=== PATIENT | female | born 1990 | race Two or more races ===

== ENCOUNTER 2020-12-27 12:21 | Outpatient (REF) | payer MEDICAID, SELFPAY ==
--- NOTE | ~2020-12-27 | MM_ITS ---
EXAMINATION: MM DIAGNOSTIC DIGITAL BREAST TOMOSYNTHESIS, BILATERAL US DIAGNOSTIC ULTRASOUND BREAST, BILATERAL CLINICAL INFORMATION: 30-year-old female with bilateral palpable masses upper outer breast, increased by patient perception. Prior history benign right ultrasound-guided core biopsy 06/03/2016 (fibroadenoma). No known family history breast cancer. The lifetime risk of breast cancer based on the Tyrer-Cuzick Model is 14%. COMPARISON: Outside reports from [facility]: Ultrasound guided core biopsy right breast 06/03/2006 and report targeted right breast ultrasound 12:00 area 05/06/2006. TECHNIQUE: Digital breast tomosynthesis is performed in both the craniocaudal and mediolateral oblique views along with computer-aided detection (CAD). Synthesized 2D images are generated from the tomosynthesis. Ultrasound bilateral breasts is performed for all 4 quadrants on each side using grayscale imaging and color Doppler without and with harmonics. FINDINGS: The breasts are heterogeneously dense, which may obscure small masses (ACR BI-RADS breast composition Category c). There are multiple bilateral smooth round, oval, and minor macrolobulated masses. Largest masses on left are upper outer quadrant 4.3 cm and posterior 9:00 left breast measuring 3.2 cm. Largest masses on right are upper outer quadrant measuring 5.0 cm and adjacent mass 2.0 cm. There is no architectural abnormality. No abnormal calcifications. No focal duct ectasia. The axilla and skin contours are unremarkable. Ultrasound left breast demonstrates 3 circumscribed solid masses, all with long axis parallel to the skin, likely fibroadenomas as follows: -1:00, 8 cm from nipple: 4.2 x 1.4 x 4.2 cm. -11:00, 8 cm from nipple: 3.1 x 1.4 x 2.0 cm. -12:00, 5 cm from nipple: 1.8 x 0.7 x 1.4 cm. Ultrasound right breast demonstrates 3 circumscribed solid masses, all with long axis parallel to the skin, likely fibroadenomas as follows: -10:00, 5.0 cm from nipple: 4.8 x 1.6 x 4.8 cm. -11:00, 5 cm from nipple: 2.2 x 1.0 x 2.1 cm. -1:00, 5 cm from nipple: 1.4 x 0.8 x 1.0 cm. -10:00 periareolar: 1.7 x 0.9 x 1.2 cm. -The lesion previously sampled with clip marker is not demonstrated. Results are discussed with the patient at time of visit. The masses are likely all fibroadenomas. The largest lesions are over 4 cm on each side. Surgical consult is recommended. MM/MM tomosynthesis diagnostic BI IMPRESSION: Multiple bilateral solid masses likely fibroadenomas, largest 4.8 cm on right and 4.2 cm on left. ASSESSMENT: BI-RADS 4: Suspicious (subcategory 4A: Low suspicion for malignancy) RECOMMENDATION: Surgical consult.
== END 2020-12-27 12:22 | disposition home or self-care (01) ==
LOC: HO.MAMMO 12:21
PROVIDERS: Visit Provider Registered Nurse Community Health
DX: N63.21 Unspecified lump in the left breast, upper outer quadrant (principal); N63.22 Unspecified lump in the left breast, upper inner quadrant; N63.11 Unspecified lump in the right breast, upper outer quadrant; N63.12 Unspecified lump in the right breast, upper inner quadrant
CPT/HCPCS: 76642; 77062; 77066

== ENCOUNTER → 2021-01-04 15:25 | Outpatient (BNVA) | payer MEDICAID, SELFPAY | PROVIDERS: PCP Registered Nurse Community Health; Referring Provider Registered Nurse Community Health; Visit Provider Surgery | DX: D24.1 Benign neoplasm of right breast (principal); D24.2 Benign neoplasm of left breast | CPT/HCPCS: 99202 ==

== ENCOUNTER 2021-03-19 08:05 | Day surgery (SDC) | payer MEDICAID, SELFPAY ==
[2021-03-13 10:57] VITALS: BMI 22.9
--- NOTE | 2021-03-16 12:01 | HO.ANESPROP2 ---
Documented by User: Liudmila Dodson NP 03/16/21 12:01 HPI - Anesthesia Eval Consult details Narrative: 30yo F for Bilateral Excision of 3 Right breast masses & 2 Left breast masses [facility] Active Problems Active Problems: All Active Problems (Updated 01/18/21 @ 13:09 by Scarlet Miller RN) Fibroadenoma of both breasts (Acute) Past Medical History Medical History Anxiety Asthma Concussion Depression Family History Family History Maternal Grandmother Stomach cancer Maternal Aunt Breast cancer Maternal Aunt Breast cancer Surgical History Surgical History History of breast lump/mass excision Social History Social History Alcohol intake: never Patient Tobacco Use Status: Never used Tobacco Use of substances other than those prescribed or required for medical reasons: Yes Are you DNR?: No Advance Directives: No Advance Directives Information Provided: Yes Recently lost weight without trying: No How much weight loss: 2-13 pounds Nutrition Risks: No Nutritional Risk Meds Allergies Allergy/AdvReac Type Severity Reaction Status Date / Time No Known Allergies Allergy Verified 03/19/21 08:15 Home Medications Medication Instructions Recorded Confirmed Last Taken Type albuterol sulfate 90 mcg/actuation 2 puff INHALATION Q4-6H PRN 01/18/21 03/19/21 Unknown History aerosol inhaler (ProAir HFA) citalopram 20 mg tablet 20 mg PO DAILY 03/19/21 03/19/21 Unknown History Exam Exam Date and Time: March 16, 2021 1201 Height,Weight and Vital Signs: Height 5 ft 8 in Weight 68.492 kg Assessment and Plan Assessment Anesthesia Assessment: Chart Reviewed Documented by User: Suni Gr MD 03/19/21 09:25 PMFSH Past Medical History Medical History Anxiety Asthma Concussion Depression Family History Family History Maternal Grandmother Stomach cancer Maternal Aunt Breast cancer Maternal Aunt Breast cancer Surgical History Surgical History History of breast lump/mass excision History of Problems with Anesthesia: No Social History Social History Alcohol intake: never Patient Tobacco Use Status: Never used Tobacco Use of substances other than those prescribed or required for medical reasons: Yes Are you DNR?: No Advance Directives: No Advance Directives Information Provided: Yes Recently lost weight without trying: No How much weight loss: 2-13 pounds Nutrition Risks: No Nutritional Risk Meds Allergies Allergy/AdvReac Type Severity Reaction Status Date / Time No Known Allergies Allergy Verified 03/19/21 08:15 Home Medications Medication Instructions Recorded Confirmed Last Taken Type albuterol sulfate 90 mcg/actuation 2 puff INHALATION Q4-6H PRN 01/18/21 03/19/21 Unknown History aerosol inhaler (ProAir HFA) citalopram 20 mg tablet 20 mg PO DAILY 03/19/21 03/19/21 Unknown History Exam Airway Mallampati Class: II TM Dist: >3cm Neck ROM: Full Loose/Missing/Broken Teeth: No Heart: RRR Lungs: CTA Assessment and Plan Assessment Anesthesia Assessment: Anesthesia Plan Discussed Final Anesthetic Review History of Problems with Anesthesia: No NPO: Yes ASA Class: II Final Preanesthetic Review: Meds/Allgs Chart Reviewed, Consent Obtained/Reviewed and Anes Risks/Benef Reviewed Patient Risk: Low Procedure Risk: Low
[2021-03-19] VITALS (8 sets, daily range): BP systolic 110–135; BP diastolic 53–76; PULSE 83–104; RESP 16–20; TEMP 36.7–37.3; O2SAT 97–100; BMI 23.6
[2021-03-19 08:28] LABS: UPreg QC Valid YES; Urine Pregnancy NEGATIVE (NEGATIVE)
[2021-03-19] MEDS: Lactated Ringers 1,000 ML 100 ML IVCONT (08:42)
--- NOTE | 2021-03-19 09:07 | MHC.SHP ---
Pre-Procedural Eval Section A Date of Service: 03/19/21 The patient is an INPATIENT: No Changes since office visit: Yes Patient answered all questions; No Cold of Flu in the past 2 weeks, No New Medical Problems and No Changes in Medication The History & Physical has been completed within 30 days and I have reviewed it.: No Section B Chief Complaint: Fibroadenoma of both breasts Relevant Family History (Specify if Yes): No Relevant Social History: None Present Medications: None Medical History: No relevant PMH History of Previous Operations: No relevant previous surgery Allergies: Allergies Allergy/AdvReac Type Severity Reaction Status Date / Time No Known Allergies Allergy Verified 03/19/21 08:15 Review of Systems Sugical H&P ROS: Negative: Constitution, Cardiovascular, Respiratory, Neurological, Psychiatric, Hem-Onc, Allergic/Immunologic, Gastrointestinal, Genitourinary, Musculoskeletal, Endocrine and Eyes/Ears/Nose/Throat and Yes, Specify: Integumentary (breast mass) Exam Surgical H&P Exam: Normal: HEENT, Normal: Heart, Normal: Lungs, Normal: Extremities, Normal: Abdomen, Normal: Skin and Normal: Neurological Plan Diagnosis/Plan: Unchanged I have reviewed the history and physical and performed a pertinent physical examination on my patient. No changes have occurred unless specified.
--- NOTE | 2021-03-19 11:14 | P.OP_ITS ---
Operative Note Operative Note Date of Service: 03/19/21 Narrative: Preoperative diagnosis: Bilateral breast fibroadenomas Postoperative diagnosis: same Procedure: excision of fibroadenoma x3 right, x2 left Surgeon: Rayo Orozco MD [employer] Detail: Angeline Beasley PA-C Anesthesia: general LMA Indications for procedure: 30-year-old female with a previous history of bilateral fibroadenomas previous core biopsies confirming the diagnosis. Patient has requested excision of all 5 lesions as noted above. Operative findings: Multiple fibroadenomas including 3 on the right and 2 on the left the largest measuring approximately 4 cm in diameter. Specimen: Fibroadenoma x2 left breast, x3 right breast Estimated blood loss: 10 mL Complications: none Procedure details: patient was brought to the OR placed in a supine position. After administering general anesthesia the patient's breasts were prepped with ChloraPrep and draped in a sterile fashion. A surgical time-out was called the consent confirmed. Patient received preoperative antibiotics and Venodyne boots were placed. Local anesthesia consisting of 0.5% Sensorcaine was infiltrated in a curvilinear fashion in the upper portion of the left nipple. Curvilinear incision was then made with a scalpel carried out through subcutaneous tissue. Superior and inferior skin flaps were then created. Dissection was continued superiorly and a 02:00 o'clock location along the surface of the breast tissue. The palpable fibroadenoma was grasped with an Allis clamp electrocautery used to dissect around the lesion. Lesion was completely excised and sent to pathology. Attention was then directed to the 10 to 11 o'clock position where a 2nd lesion was noted. This was dissected over the superior surface and grasped with an Allis clamp. This was then brought up through the incision and dissected circumferentially using electrocautery. The lesion was passed off the table and sent to pathology for further examination. Attention was then directed to the right breast where again local anesthesia was infiltrated in the top portion of the nipple areolar complex. A curvilinear incision was made at the edge of the areola carried out through subcutaneous tissue. Superior and inferior skin flaps were then created. Dissection was continued superiorly and the 10 o'clock position. A large fibroadenoma was identified at this location. This was grasped with an Allis clamp. Electrocautery was then used to dissect circumferentially around the lesion. Lesion was excised and sent to pathology. Two other lesions, one located in the 12 o'clock position a 2nd in the 11 o'clock position were also excised in a similar fashion using electrocautery. All 3 lesions were sent to pathology for further examination. After assuring adequate hemostasis at both incisions the incisions were irrigated with saline solution. The deep breast tissue was then reapproximated using interrupted 3-0 Polysorb sutures. Dermis was reapproximated using interrupted 3-0 Polysorb sutures. Skin was then closed using a running subcuticular 4-0 Polysorb suture in both incisions. Steri-Strips 2 x 2 gauze and Tegaderm were then applied. The patient tolerated the procedure well. Sponge, instrument, and needle counts reported as correct. She was transferred to PACU in stable condition.
[2021-03-19] MEDS: ondansetron HCL 4 MG/2 ML VIAL IVPUSH (11:54)
[2021-03-19] MEDS: Acetaminophen 325 MG TABLET 650 MG PO (12:06)
== END 2021-03-19 13:20 | disposition home or self-care (01) ==
PROVIDERS: Nurse Practitioner; PCP Registered Nurse Community Health; Visit Provider Surgery
PROC: (CPT 19120; principal; 2021-03-19 09:40)
DX: D24.2 Benign neoplasm of left breast (principal); D24.1 Benign neoplasm of right breast; Z86.018 Personal history of other benign neoplasm
CPT/HCPCS: 19120; 81025; 88305; 88307; J0690; J1100; J2250; J2405; J3010

== ENCOUNTER → 2021-04-05 14:21 | Outpatient (BNVA) | payer MEDICAID, SELFPAY | PROVIDERS: PCP Registered Nurse Community Health; Referring Provider Registered Nurse Community Health; Visit Provider Surgery | DX: D24.1 Benign neoplasm of right breast (principal); D24.2 Benign neoplasm of left breast | CPT/HCPCS: 99212 ==

== ENCOUNTER 2021-10-14 12:37 | Emergency (ER) | payer MEDICAID, SELFPAY ==
[2021-10-14 12:53] VITALS: BP 117/66; PULSE 90; RESP 17; TEMP 36.2; O2SAT 99; BMI 22.5
[2021-10-14] MEDS: Diphth,Pertus(ACell),Tet Adult 0.5 ML SYRINGE IM (14:11)
--- NOTE | 2021-10-14 14:44 | ED_ITS ---
HPI - Wound/Laceration General Chief Complaint: Wound/Laceration Stated Complaint: l arm laceration Time Seen by Provider: 10/14/21 13:40 Source: patient Mode of arrival: ambulatory History of Present Illness HPI narrative: 31-year-old female with a past medical history of anxiety, asthma, depression, presenting to the ED complaining of laceration to left forearm s/p cooking with knife this morning and fall slipping and falling onto knife. Denies injury to other area. Tetanus unknown. Denies numbness, tingling, weakness Onset (ago): hour(s) Related Data Home Medications Medication Instructions Recorded Confirmed albuterol sulfate 90 mcg/actuation 2 puff inhalation Q4-6H PRN 01/18/21 04/06/21 aerosol inhaler (ProAir HFA) Wheezing citalopram 20 mg tablet 20 mg PO DAILY 03/19/21 04/06/21 Previous Rx's Medication Instructions Recorded oxycodone-acetaminophen 5 mg-325 1 tab PO Q6H PRN pain (scale score 03/19/21 mg tablet (Endocet) 7-10) #14 tabs Allergies Allergy/AdvReac Type Severity Reaction Status Date / Time No Known Allergies Allergy Verified 10/14/21 12:53 Review of Systems Review of Systems: Constitutional: No Weight loss, No Fever, No Chills ENT/Mouth: No Ear Pain, No Nasal Congestion, No Hoarseness, No sore throat, No Rhinorrhea, No Swallowing Difficulty Cardiovascular: No Chest Pain, No SOB Respiratory: No Cough, No Sputum Gastrointestinal: No Nausea, No Vomiting, No Diarrhea, No Constipation, No Abdominal pain Genitourinary: No Dysuria, No Urinary Frequency, No Hematuria, No Urinary Incontinence/retention, No Urgency, No Flank Pain Musculoskeletal: No joint pain, No Myalgias, No Joint Swelling Skin: + Skin Lesions, No rash Neuro: No Weakness, No Numbness, No Paresthesias Yes all other systems are reviewed and are negative [facility] Past Medical History Attestation statement: The following information was validated with the patient. Medical History Anxiety Asthma Concussion Depression Surgical History History of breast lump/mass excision Family History Family History Maternal Grandmother Stomach cancer Maternal Aunt Breast cancer Maternal Aunt Breast cancer Social History Social History Alcohol intake: never Patient Tobacco Use Status: Never used Tobacco Advance Directives: No Advance Directives Information Provided: No Physical Exam Vital Signs: Vital Signs: Last Vital Signs Temp 97.2 F 10/14/21 12:53 Pulse 90 10/14/21 12:53 Resp 17 10/14/21 12:53 BP 117/66 10/14/21 12:53 Pulse Ox 99 10/14/21 12:53 O2 Del Method 10/14/21 12:53 BMI result Body Mass Index 22.5 Const: General: cooperative, healthy appearing and no acute distress Orientation/consciousness: patient oriented x3 Limitations: no limitations HEENT: Head: Yes normal to inspection and Yes atraumatic Ears: hearing grossly normal bilaterally General nose exam: Normal external nose present Face and sinus: Yes normal facial exam Eyes: General: appearance normal, both eyes and all related structures EOM: EOMs intact bilaterally Neck: Neck: Yes normal visual inspection and Yes no meningeal signs Resp: Effort & Inspection: normal respiratory effort and no respiratory distress Cardio: Rate: regular rate Heart sounds: S1 normal heart sound present and S2 normal heart sound present Skin: Other: +1.5cm superficial laceration to L forearm. No surrounding erythema, no warmth Rashes: no rashes Neuro: General: patient oriented x3, tone normal and no meningeal signs Gait exam (Neuro): Normal gait present Extrem: General: Yes normal to inspection MDM - Wound/Laceration MDM Narrative Medical decision making narrative: 31-year-old female with a past medical history of anxiety, asthma, depression, presenting to the ED complaining of laceration to left forearm s/p cooking with knife this morning and fall slipping and falling onto knife. On exam vital signs stable, NAD/nontoxic appearing, physical exam as above. Superficial laceration noted, will Dermabond and update tetanus Differential Diagnosis Differential diagnosis: Likely laceration Medical Records Attestation: I reviewed the patient's medical records. Lab Data Attestation: I reviewed the patient's lab results. Procedures Laceration Laceration 1: Site: upper extremity Side (If applicable): left Size (cm): 1.5 Description: linear Depth: simple, single layer Pre-repair: wound explored and irrigated extensively Skin layer closed with: other (Dermabond) Discharge Plan Discharge Clinical Impression: Laceration Patient Disposition: Home, Self-Care Instructions: Laceration (ED) Additional Instructions: Your cut was fixed with skin glue, do not pick a it, this will fall off on its own. If area begins look infected please return to the emergency department. Your tetanus was updated. Prescriptions: No Action albuterol sulfate [ProAir HFA] 90 mcg/actuation Hfa Aerosol Inhaler 2 puff INHALATION Q4-6H PRN (Reason: Wheezing) citalopram 20 mg Tablet 20 mg PO DAILY oxycodone-acetaminophen [Endocet] 5-325 mg tablet 1 tab PO Q6H PRN (Reason: pain (scale score 7-10)) Qty: 14 0RF Referrals: Rebeka Barrett MANAGING DIRECTOR [employer]LAS [Primary Care Provider] - Interventions: ED Discharge Assessment Last Done: 10/14/21 15:03
== END 2021-10-14 15:05 | disposition home or self-care (01) ==
PROVIDERS: Emergency Provider Emergency Medicine Emergency Medical Services; PCP Registered Nurse Community Health
DX: S41.112A Laceration without foreign body of left upper arm, initial encounter (principal); W26.0XXA Contact with knife, initial encounter; Y93.9 Activity, unspecified; Y92.009 Unspecified place in unspecified non-institutional (private) residence as the place of occurrence of the external cause; Y99.9 Unspecified external cause status; Z79.899 Other long term (current) drug therapy
CPT/HCPCS: 12001; 90471; 90715; 99283; 99284

== ENCOUNTER 2025-04-27 10:41 | Outpatient (REF) | payer MEDICAID, SELFPAY ==
--- NOTE | ~2025-04-27 | XR_ITS ---
EXAMINATION: XR HAND 3 OR MORE VIEWS RIGHT HISTORY: pain COMPARISON: There are no prior studies available for comparison. FINDINGS: Three views of the right hand are submitted. Osseous mineralization is normal. There is no fracture or dislocation. The joint spaces are preserved. The soft tissues are unremarkable. XR/XR hand RT min 3V IMPRESSION: Unremarkable examination of the right hand. Electronically signed by: Kristofer Grimes MD 04/27/2025 11:11 AM ZOË
--- OUTSIDE RECORDS SUMMARY | 2025-04-27 10:20 | XMS_ITS | Encounter Summary ---
Author Organization [employer] Address [address] [place] [address] Care Team Providers Care Drapery Operator Name Role Phone Unavailable Primary Care Provider Unavailabl e Reason for Visit * Reason Comments Hand Pain Encounter Details Date Type Department Care Team ([facility] st Contact Info) Description 04/27/2025 10:20 AM EST Office Visit [facility] [address] [place] [address] Cecilia Weathers MD [address] [place] [address] Right hand pain (Primary Dx); Closed fracture of right hand, initial encounter Social History Tobacco Use Types Packs/Day Years Used Date Smoking Tobacco: Never Smokeless Tobacco: Never Tobacco Cessation:Counseling Given: Not Answered Alcohol Use Standard Drinks/Week Comments Yes 0 (1 standard drink = 0.6 oz pur e alcohol) Alcohol Answer Date Recorded How often do you have a drink containing alcohol ? 0 03/04/2025 How many drinks containing a lcohol do you have on a typical day when you are drinking? 0 03/04/2025 How often do you have six or more drinks on one occasion? 0 03/04/2025 Housing Stability Answer Date Recorded What is your housing situation today? I have erika mercer 01/03/[address] you li ve. Do you have problems with any of the following? None of the above 01/03/2025 Food Insecurity Answer Date Recorded Within the past 12 months, y ou worried that your food would run out before you got money to buy more: Never True 01/03/2025 Within the past 12 months,th e food you bought just didn't last and you didn't have enough money to get more: Never True 11/2024 Transportation Answer Date Recorded In the past 12 months, has l ack of transportation kept you from medical appts, meetings, work or from getting things needed for daily living? No 01/03/2025 Intimate Partner Violence Answer Date R ecorded Within the last year, have y ou been afraid of your partner or ex-partner? 2 03/04/2025 Within the last year, have y ou been humiliated or emotionally abused in other ways by your partner or ex-partner? 2 Within the last year, have y ou been kicked, hit, slapped, or otherwise physically hurt by your partner or ex-partner? 2 03/04/2025 Within the last year, have y ou been raped or forced to have any kind of sexual activity by your partner or ex-partner? 2 03/04/2025 Utilities Answer Date Recorded In the past 12 months, has t he electric, gas, oil or water company threatened to shut off services in your home? No 01/03/2025 Internet Access Answer Date Recorded Internet Access Q1 Yes 01/03/2025 Internet Access Q2 Not on file 01/03/2025 Comments No Sex and Gender Information Value Date Recorded Sex Assigned at Female 02/22/2022 5:45 PM EDT Legal Sex Female 5:45 PM EDT Gender Identity Female 02/22/2022 5:45 PM EDT Sexual Orientation Straight 02/22/2022 5: 45 PM EDT documented as of this encounter Last Filed Vital Signs Vital Sign Reading Time Taken Comments Blood Pressure 123/79 04/27/2025 10:17 AM EST Pulse 96 04/27/2025 10:17 AM EST Temperature 37 C (98.6 F) 04/27/2025 10:17 AM EST Respiratory Rate 19 04/27/2025 10:1 7 AM EST Oxygen Saturation 99% 04/27/2025 10: 17 AM EST Inhaled Oxygen Concentration - - Weight 81.1 kg (178 lb 12.8 oz) 025 10:17 AM EST Height 174 cm (5' 8.5 ) 04/27/2025 10:1 7 AM EST Body Mass Index 26.79 04/27/2025 10:17 AM EST documented in this encounter Plan of Treatment Upcoming Encounters Date Type Department Care Team (Late st Contact Info) Description 06/10/2025 9:00 AM EST Office Visit [facility] [address] [place] [address] Steffi Salgado NP [address] [place] [address] 07/11/2025 10:30 AM EDT Office Visit [facility]/Family Planning [address] [place] [address] Amarilis Roberto NP [address] [place] [address] documented as of this encounter Procedures Procedure Name Priority Date/Time Associated Diagnosis Comments XR HAND 3+ VIEWS RIGHT Routine 04/27/2025 10:50 AM EST Right hand pain documented in this encounter Results * XR Hand 3+ Views Right (04/27/2025 10:50 AM EST) Anatomical Region Laterality Modality Upper Extremities, Hand Right [facility] 04/27/2025 10:5 0 AM EST Narrative 04/27/2025 11:14 AM EST [address] [address] XRay Report Signed Patient: Sara Barnett MR#: [id number] : 1990 Acct:[id number] Age/Sex: 35 / F ADM Date: 04/27/25 Loc: .HHCX Attending Dr: Cecilia Weathers MD Ordering Physician: Cecilia Weathers MD Date of Service: 04/27/25 Procedure(s): XR hand RT min 3V Accession Number(s): [id number] cc: Cecilia Weathers MD Reason for Exam: pain EXAMINATION: XR HAND 3 OR MORE VIEWS RIGHT HISTORY: pain COMPARISON: There are no prior studies available for comparison. FINDINGS: Three views of the right hand are submitted. Osseous mineralization is normal. There is no fracture or dislocation. The joint spaces are preserved. The soft tissues are unremarkable. XR/XR hand RT min 3V IMPRESSION: Unremarkable examination of the right hand. Electronically signed by: Kristofer Grimes MD 04/27/2025 11:11 AM EST RP Dictated By: Kristofer Grimes MD Signed By: <Electronically signed by Kristofer Grimes MD in OV> 04/27/25 1111 DD/ 1050 TD/TT: 04/27/25 105 Sales Service Rep: Procedure Note Donotuseinterpreter, Image - 04/27/[address] [address] XRay Report Signed Patient: Sara BarnettMR#: [id number] : 1990Acct:[id number] Age/Sex: 35 / FADM Date: 04/27/25 Loc: HO.HHCX Attending Dr: Cecilia Weathers MD Ordering Physician: Ceiclia Weathers MD Date of Service: 04/27/25 Procedure(s): XR hand RT min 3V Accession Number(s): [id number] cc: Cecilia Weathers MD Reason for Exam: pain EXAMINATION: XR HAND 3 OR MORE VIEWS RIGHT HISTORY: pain COMPARISON: There are no prior studies available for comparison. FINDINGS: Three views of the right hand are submitted. Osseous mineralization is normal. There is no fracture or dislocation. The joint spaces are preserved. The soft tissues are unremarkable. XR/XR hand RT min 3V IMPRESSION: Unremarkable examination of the right hand. Electronically signed by: Kristofer Grimes MD 04/27/2025 11:11 AM EST RP Dictated By: Kristofer Grimes MD Signed By: <Electronically signed by Kristofer Grimes MD in OV> 04/27/25 1111 DD/ 1050 TD/TT: 04/27/25 105 Sales Service Rep: Cecilia Weathers MD IMG XR PROCEDURES Final Result documented in this encounter Visit Diagnoses Diagnosis Right hand pain- Primary Pain in soft tissues of limb Closed fracture of right hand, initial encounter documented in this encounter
--- OUTSIDE RECORDS SUMMARY | 2025-04-27 11:58 | XMS_ITS | Encounter Summary ---
Author Organization [employer] Address [address] [place] [address] [address] [address] Care Team Providers Care Online Advertising Director Name Role Phone Unavailable Primary Care Provider Unavailabl e Reason for Visit * Reason Onset Date Comments Appointment Request 12/21/2024 Nexplanon re moval Encounter Details Date Type Department Care Team ([facility] st Contact Info) Description 12/21/2024 Telephone OB/Family Planning [address] [place] [address] Provider, Not In System Appointment Request (Nexplanon removal) Social History Tobacco Use Types Packs/Day Years Used Date Smoking Tobacco: Never Assessed Comments Unknown Sex and Gender Information Value Date Recorded Sex Assigned at Female 02/22/2022 5:45 PM EDT Legal Sex Female 5:45 PM EDT Gender Identity Female 02/22/2022 5:45 PM EDT Sexual Orientation Straight 02/22/2022 5: 45 PM EDT documented as of this encounter Miscellaneous Notes * Telephone Encounter - Emily Miller - 12/29/2024 11:41 AM EDT Patient request to r/s the appointment on 01/03 to 8:50am * Telephone Encounter - Sandeep Reid - 12/29/2024 11:04 AM EDT Pt is requesting to speak with the OB office regarding her nexplanon removal. * Telephone Encounter - Phyllis Frye RN - 12/21/2024 10:13 AM EDT FP counseling Patient requested appt to remove Nexplanon Inserted in 09/2021 PI: Desires Discussed return of fertility with method Scheduled appt for 01/03/25 @ 8:50 AM Patient agreed * Telephone Encounter - Tariq Roth - 12/21/2024 8:40 AM EDT Patient is requesting an appt, as soon as possible for a nexplanon removal. Please follow up. documented in this encounter Plan of Treatment Upcoming Encounters Date Type Department Care Team (Late st Contact Info) Description 06/10/2025 9:00 AM EST Office Visit [facility] [address] [place] [address] Steffi Salgado NP [address] [place] [address] 07/11/2025 10:30 AM EDT Office Visit OB/Family Planning [address] [place] [address] Amarilis Roberto NP [address] [place] [address] documented as of this encounter Visit Diagnoses Not on filedocumented in this encounter
--- OUTSIDE RECORDS SUMMARY | 2025-04-27 11:58 | XMS_ITS | Encounter Summary ---
Author Organization [employer] Address [address] [place] [address] Care Team Providers Care Engine Assembly Supervisor Name Role Phone Unavailable Primary Care Provider Unavailabl e Reason for Visit * Reason Onset Date Comments Appointment Request 11/24/2023 Encounter Details Date Type Department Care Team (Late st Contact Info) Description 11/24/2023 Telephone OB/Family Planning [address] [place] [address] Provider, Not In System Appointment Request Social History Tobacco Use Types Packs/Day Years Used Date Smoking Tobacco: Never Assessed Comments Unknown Sex and Gender Information Value Date Recorded Sex Assigned at Female 02/22/2022 5:45 PM EDT Legal Sex Female 5:45 PM EDT Gender Identity Female 02/22/2022 5:45 PM EDT Sexual Orientation Straight 02/22/2022 5: 45 PM EDT documented as of this encounter Miscellaneous Notes * Telephone Encounter - Mandi Heavenly - 11/24/2023 9:05 AM EDT Pls call pt to resched appt [phone] documented in this encounter Plan of Treatment Upcoming Encounters Date Type Department Care Team (Late st Contact Info) Description 06/10/2025 9:00 AM EST Office Visit [facility] [address] [place] [address] Steffi Salgado NP [address] [place] [address] 07/11/2025 10:30 AM EDT Office Visit OB/Family Planning [address] [place] [address] Amarilis Roberto NP [address] [place] [address] documented as of this encounter Visit Diagnoses Not on filedocumented in this encounter
--- OUTSIDE RECORDS SUMMARY | 2025-04-27 11:58 | XMS_ITS | Encounter Summary ---
Author Organization [employer] [facility] Address [address] [place] [address] Care Team Providers Care Probation And Parole Officer Name Role Phone Unavailable Primary Care Provider Unavailabl e Reason for Visit * Reason Onset Date Comments Appointment Request 09/29/2024 Encounter Details Date Type Department Care Team (Late st Contact Info) Description 09/29/2024 Telephone OB/Family Planning [address] [place] [address] Amarilis Roberto NP [address] [place] [address] Appointment Request Social History Tobacco Use Types [...] encounter Miscellaneous Notes * Telephone Encounter - Carol Fine - 09/29/2024 9:16 AM EDT B/C documented in this encounter Plan of Treatment Upcoming Encounters Date Type Department Care Team (Late st Contact Info) Description 06/10/2025 9:00 AM EST Office Visit [facility] [address] [place] [address] Steffi Salgado NP [address] [place] [address] 07/11/2025 10:30 AM EDT Office Visit OB/Family Planning [address] [place] [address] Amarilis Roberto NP [address] [place] [address] documented as of this encounter Visit Diagnoses Not on filedocumented in this encounter
--- OUTSIDE RECORDS SUMMARY | 2025-04-27 11:58 | XMS_ITS | Encounter Summary ---
Author Organization [employer] Address [address] [place] [address] Care Team Providers Care Base Filler Name Role Phone Unavailable Primary Care Provider Unavailabl e Reason for Visit * Reason Onset Date Comments Appointment Request 10/01/2024 Encounter Details Date Type Department Care Team (Late st Contact Info) Description 10/01/2024 Telephone OB/Family Planning [address] [place] [address] Provider, Not In System Appointment Request Social [...] encounter Miscellaneous Notes * Telephone Encounter - Manditho Burdick - 10/01/2024 3:34 PM EDT Pls call to resched appt from 10/01 documented in this encounter Plan of Treatment Upcoming Encounters Date Type Department Care Team (Late st Contact Info) Description 06/10/2025 9:00 AM EST Office Visit [facility] [address] [place] [address] Steffi Salgado NP [address] [place] [address] 07/11/2025 10:30 AM EDT Office Visit OB/Family Planning [address] [place] [address] Amarilis Roberto NP [address] [place] [address] documented as of this encounter Visit Diagnoses Not on filedocumented in this encounter
--- OUTSIDE RECORDS SUMMARY | 2025-04-27 11:58 | XMS_ITS | Encounter Summary ---
Author Organization [employer] Address [address] [place] [address] Care Team Providers Care Fitness Leader Name Role Phone Unavailable Primary Care Provider Unavailabl e Reason for Visit * Reason Onset Date Comments r/s apt need 10/08/2023 Encounter Details Date Type Department Care Team (Late st Contact Info) Description 10/08/2023 Telephone OB/Family Planning [address] [place] [address] Provider, Not In System r/s apt need Social History Tobacco Use Types Packs/Day Years Used Date Smoking Tobacco: Never Assessed Comments Unknown Sex and Gender Information Value Date Recorded Sex Assigned at Female 02/22/2022 5:45 PM EDT Legal Sex Female 5:45 PM EDT Gender Identity Female 02/22/2022 5:45 PM EDT Sexual Orientation Straight 02/22/2022 5: 45 PM EDT documented as of this encounter Miscellaneous Notes * Telephone Encounter - Faith Smith - 10/08/2023 10:39 AM EDT Pt was not able to come to her apt today with OB Would like to r/s. documented in this encounter Plan of Treatment Upcoming Encounters Date Type Department Care Team (Late st Contact Info) Description 06/10/2025 9:00 AM EST Office Visit [facility] [address] [place] [address] Steffi Salgado NP [address] [place] [address] 07/11/2025 10:30 AM EDT Office Visit OB/Family Planning [address] [place] [address] Amarilis Roberto NP [address] [place] [address] documented as of this encounter Visit Diagnoses Not on filedocumented in this encounter
--- OUTSIDE RECORDS SUMMARY | 2025-04-27 11:58 | XMS_ITS | Encounter Summary ---
Author Organization [facility] Address [address] [place] [address] Care Team Providers Care Program Proposals Coordinator Name Role Phone Jennifer Velasco Primary Care Provider Diane vailable Encounter Details Date Type Department Care Team (Latest Contact Info) Description 09/11/2020 Abstract [facility] CONVERSIONS Dental, Provider, DDS Social History Tobacco Use Types Packs/Day Years Used Date Smoking Tobacco: Never Assessed Comments Unknown Sex and Gender Information Value Date Recorded Sex Assigned at Female 02/22/2022 5:45 PM EDT Legal Sex Female 5:45 PM EDT Gender Identity Female 02/22/2022 5:45 PM EDT Sexual Orientation Straight 02/22/2022 5: 45 PM EDT documented as of this encounter Plan of Treatment Upcoming Encounters Date Type Department Care Team (Late st Contact Info) Description 06/10/2025 9:00 AM EST Office Visit [facility] [address] [place] [address] Steffi Salgado NP [address] [place] [address] 07/11/2025 10:30 AM EDT Office Visit OB/Family Planning [address] [place] [address] Amarilis Roberto NP [address] [place] [address] documented as of this encounter Visit Diagnoses Not on filedocumented in this encounter Care Teams Program Proposals Coordinator Relationship Specialty Start Date End Date Jennifer Velasco FNP PCP - General Family Medicine 12/25/21 10/17/22 documented as of this encounter
--- OUTSIDE RECORDS SUMMARY | 2025-04-27 11:59 | XMS_ITS | Clinical Summary ---
Author Organization [employer] Address [address] [facility] [address] [place] [address] Care Team Providers Care Quantitative Equity Head Name Role Phone Unavailable Primary Care Provider Unavailabl e Allergies No known active allergies Medications albuterol (Ventolin HFA) 108 (90 Base) MCG/ACT inhalerIndication s:Mild intermittent asthma without complication Inhale 2 puffs by mouth every 4 to 6 hours as needed 18 g 3 05/16/2022 Active escitalopram (Lexapro) 20 MG tabletIndications :Depression, unspecified depression type Take 1 tablet by mouth every day 28 tablet 1 05/16/2022 Active multivitamin () 27-0.8 MG tabletIndications :Family planning TAKE 1 TABLET BY MOUTH EVERY DAY 30 tablet 11 01/03/2025 Active multivitamin () 27-0.8 MG tabletIndications :Family planning Take 1 tablet by mouth Once per day. 30 tablet 11 01/03/2025 01/04/20 26 Active ibuprofen 800 MG tablet Take 1 tablet (800 mg) by mouth 3 times daily. 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 ASCCP - 1 year follow up. Patient sent [email or web address] message Encounters Date Type Department Care Team Description 04/27/2025 10:20 AM EST Office Visit [facility] [address] [place] [address] Cecilia Weathers MD Right hand pain (Primary Dx); Closed fracture of right hand, initial encounter 04/27/2025 Travel 03/08/2025 Telephone Adult Medicine [address] [place] [address] Provider, Not In System transfer Rx 03/07/2025 Telephone OB/Family Planning [address] [place] [address] Amarilis Roberto NP BV (Rx sent) 03/04/2025 11:10 AM EST Office Visit OB/Family Planning [address] [place] [address] Amarilis Roberto NP Dyspareunia, female (Primary Dx); Pelvic pain; Screening for cervical cancer; Encounter for preconception consultation 03/04/2025 Travel 02/09/2025 Telephone Adult Medicine [address] [place] [address] Provider, Not In System Appointment Request from Last 3 Months Immunizations Immunization Administration Dates Next Due Influenza injectable quadriv alent preservative free 04/04/2021 Influenza, injectable, quadr ivalent, preservative free, pediatric 01/13/2015,02/03/2014,01/01/2012,2010 MMR 04/05/2021 Pfizer Covid-19 Vaccine 12+ 04/04/2021,1 05/13/2020,11/09/2020,2020 Pfizer Covid-19 Vaccine 12+ Bivalent 08/23/2022 Rotavirus Monovalent (2 dose) 11/22/2015 Tdap 10/14/2021, 8,11/21/2011,2011 Social History Tobacco Use Types Packs/Day Years [...] Orientation Straight 02/22/2022 5: 45 PM EDT Last Filed Vital Signs Vital Sign Reading [...] Mass Index 26.79 04/27/2025 10:17 AM EST Plan of Treatment Upcoming Encounters Date Type Department Care Team (Late st Contact Info) Description 06/10/2025 9:00 AM EST Office Visit [facility] [address] [place] [address] Steffi Salgado NP [address] [place] [address] 07/11/2025 10:30 AM EDT Office Visit OB/Family Planning [address] [place] [address] Amarilis Roberto NP [address] [place] [address] Health Maintenance Due Date Last Done Comments Depression Screening 1989 Hepatitis B Vaccines (3 of 3 - 3-dose series) 10/12/1999 08/17/1999, 07/05/1997 Family Planning (PISQ) 2004 HPV Vaccines (2 - 3-dose series) 12/02/2024 11/04/2024 Influenza Vaccine (#1) 2024 , 02/25/2023, 04/04/2021, Additional history exists COVID-19 Vaccine ( season) 2024 11/04/2024, 08/23/2022, 04/04/2021, Additional history exists Disability Screening 01/03/2026 01/03/2025 SDOH Screening 01/03/2026 01/03/2025 Alcohol/Substance Use Screening 03/04/2026 03/04/2025 Cervical Cancer Screening 03/04/2026 HPV/Cotest 03/04/2026 03/04/2025, 03/04/2025 Pap Smear 03/04/2026 03/04/2025 Tobacco Screening 04/27/2026 04/27/2025 DTaP/Tdap/Td Vaccines (11 - Td or Tdap) 11/04/2034 11/04/2024, 10/14/2021, 08/14/2017, Additional history exists Zoster Vaccines (1 of 2) 2039 RSV Patients and Patients Aged 60 years or older (1 - 1-dose 75+ series) 2064 HIB Vaccines Completed 08/15/1990 IPV Vaccines Completed 09/20/1994, 11/2 , 1990, Additional history exists Rotavirus Vaccines Aged Out 11/22/2015 No longer eligible based on patient's age to complete this topic HIV Screening Completed 09/12/2023, 04/18/2011 Hepatitis C Screening Completed 09/12/2023 Hepatitis A Vaccines Aged Out No long er eligible based on patient's age to complete this topic Meningococcal B Vaccine Aged Out No l onger eligible based on patient's age to complete this topic Meningococcal Vaccine Aged Out No bernadette skye eligible based on patient's age to complete this topic Pneumococcal Vaccine: Pediatrics (0 to 5 Years) and At-Risk Patients (6 to 49) Years Aged Out No longer eligible based on patient's age to complete this topic RSV under 20 months Aged Out No longe r eligible based on patient's age to complete this topic Procedures Procedure Name Priority Date/Time Associated Diagnosis Comments XR HAND 3+ VIEWS RIGHT Routine 04/27/2025 10:50 AM EST Right hand pain US PELVIS NON OB WITH TRANSVAGINAL Routine 03/08/2025 1:31 PM EST Pelvic pain HPV GENOTYPES 16,18/45 Routine 03/04/2025 12:00 AM EST IMAGE-GUIDED PAP W/AGE BASED SCR PROTOCOLS Routine 03/04/2025 12:00 AM EST Screening for cervical cancer SURESWAB(R) ADVANCED VAGINITIS PLUS, TMA Routine 03/04/2025 12:00 AM EST Dyspareunia, female from Last 3 Months Results * XR Hand 3+ Views Right (04/27/2025 10:50 AM EST) Anatomical Region Laterality Modality Upper Extremities, Hand Right Radiogra phic Imaging 04/27/2025 10:5 0 AM EST Narrative 04/27/2025 11:14 AM EST [address] [address] XRay Report Signed Patient: Sara Barnett MR#: [id number] : 1990 Acct:[id number] Age/Sex: 35 / F ADM Date: 04/27/25 Loc: HO.HHCX Attending Dr: Cecilia Weathers MD Ordering Physician: Cecilia Weathers MD Date of Service: 04/27/25 Procedure(s): XR hand RT min 3V Accession Number(s): [id number] cc: Cecilia Weathers MD Reason for Exam: [...] Kristofer Grimes MD 04/27/2025 11:11 AM EST Dictated By: Kristofer Grimes MD Signed By: <Electronically signed by Kristofer Grimes MD in OV> 04/27/25 1111 DD/ 1050 TD/TT: 04/27/25 1052 Manager Reimbursement: Procedure Note Donotuseinterpreter, Image - 04/27/[address] [address] XRay Report Signed Patient: Sara BarnettMR#: [id number] : 1990Acct:[id number] Age/Sex: 35 / FADM Date: 04/27/25 Loc: HO.HHCX Attending Dr: Cecilia Weathers MD Ordering Physician: Cecilia Weathers MD Date of Service: 04/27/25 Procedure(s): XR hand RT min 3V Accession Number(s): [id number] cc: Cecilia Weathers MD Reason for Exam: [...] OV> 04/27/25 1111 DD/ 1050 TD/TT: 04/27/25 1052 Manager Reimbursement: Cecilia Weathers MD IMG XR PROCEDURES Final Result * US Pelvis Non OB with Transvaginal (03/08/2025 1:31 PM EST) Anatomical Region Laterality Modality Pelvis Ultrasound 03/08/2025 1:31 PM EST 03/08/2025 1:31 PM EST Narrative 03/08/2025 2:16 PM EST PROCEDURE: US PELVIC NON OB WITH TRANSVAGINAL 03/08/2025 12:55 PM COMPARISON: None INDICATION: Pelvic pain TECHNIQUE: Real time sonographic images were obtained of the pelvis. FINDINGS: Transabdominal examination of the pelvis was followed by transvaginal examination for adequate evaluation of the endometrium and adnexa. The uterus is normal in size, measuring 5.0 x 3.5 x 10.1 cm. Myometrium is mildly heterogeneous. There are a few scattered cystic and echogenic foci noted in the junctional zone (best seen cine clips 6 and 9). The endometrial stripe measures 0.8 cm. The right ovary measures 3.3 x 2.9 x 2.7 cm, with a calculated volume of 13.1 cc. Parenchymal detail not well assessed due to ovarian position. The left ovary measures 2.9 x 2.8 x 2.3 cm, with a calculated volume of 9.6 cc. It contains a 2.1 cm hypoechoic focus, which may contain some low-level internal echoes, difficult to assess due to ovarian position. There is no significant pelvic free fluid. IMPRESSION: Appearance of the uterus raises possibility of adenomyosis. Evaluation of the ovaries is limited due to their position in the pelvis, with interference from adjacent bowel gas. There is a probable dominant follicle in the left ovary, although could not be fully cleared and may contain some low-level echoes that raise possibility of internal hemorrhage or possibly endometrioma. Sonographic follow-up could be performed at 6-8 weeks to assess for resolution Liseth Armenta MD 03/08/2025 2:16 PM Procedure Note Donotuseinterpreter, Image - 03/08/2025 PROCEDURE: US PELVIC NON OB WITH TRANSVAGINAL 03/08/2025 12:55 PM COMPARISON: None INDICATION: Pelvic pain TECHNIQUE: Real time sonographic images were obtained of the pelvis. FINDINGS: Transabdominal examination of the pelvis was followed by transvaginalexamination for adequate evaluation of the endometrium and adnexa. The uterus is normal in size, measuring 5.0 x 3.5 x 10.1 cm. Myometrium ismildly heterogeneous. There are a few scattered cystic and echogenic focinoted in the junctional zone (best seen cine clips 6 and 9). The endometrial stripe measures 0.8 cm. The right ovary measures 3.3 x 2.9 x 2.7 cm, with a calculated volume of13.1 cc. Parenchymal detail not well assessed due to ovarian position. The left ovary measures 2.9 x 2.8 x 2.3 cm, with a calculated volume of9.6 cc. It contains a 2.1 cm hypoechoic focus, which may contain somelow-level internal echoes, difficult to assess due to ovarian position. There is no significant pelvic free fluid. IMPRESSION: Appearance of the uterus raises possibility of adenomyosis. Evaluation of the ovaries is limited due to their position in the pelvis,with interference from adjacent bowel gas. There is a probable dominantfollicle in the left ovary, although could not be fully cleared and maycontain some low-level echoes that raise possibility of internalhemorrhage or possibly endometrioma. Sonographic follow-up could beperformed at 6-8 weeks to assess for resolution Liseht Armenta MD 03/08/2025 2:16 PM Amarilis Roberto NP IMG US PROCEDURES Final Result * (ABNORMAL) SureSwab?? Advanced Vaginitis Plus, TMA (03/04/2025 12:00 AM EST) SureSwab 9R) ADV Bacterial Vaginosis (BV), TMA POSITIVE(A) NEGATIVE myaNUMBER Kimmy Species NOT DETECTED NOT DETECTED myaNUMBER Kimmy glabrata NOT DETECTED NOT DETECTED myaNUMBER Comment: Kimmy species C. albicans, C. tropicalis, C. parapsilosis, and/or C. dubliniensis can be detected, but not differentiated, in the Kimmy spp. result. Trichomonas vaginalis (TV), TMA NOT DETECTED NOT DETECTED myaNUMBER Chlamydia trachomatis RNA, TMA, Urogenital NOT DETECTED NOT DETECTED [employer] Neisseria gonorrhoeae RNA, TMA, Urogenital NOT DETECTED NOT DETECTED myaNUMBER Comment: For additional information, please refer to https://education.ARI/faq/MVY135 (This link is being provided for information/ educational purposes only.) Swab Vaginal structure / Unknown 03/04/2025 03/05/2025 2:20 AM EST Amarilis Roberto NP LAB BODY FLUIDS AND STOOLS ORDER APOLLO Final Result [facility] [address], [place] [address] [employer] [place] [employer] [address] [place] [address] * (ABNORMAL) Image-Guided Pap with Age-Based Screening Protocols (03/04/2025 12:00 AM EST) Pathologist [facility] Comment myaNUMBER Comment: This order for age-based cervical cancer and STI screening follows ACOG guidelines(PB 168, 140, SIN094). See individual assays for performing site location. Clinical Information: myaNUMBER Comment:None given LMP: [employer] Comment:02/18/2025 Prev. PAP: [employer] [place] [employer] Comment:YES Prev. BX: [employer] Comment:NONE GIVEN SOURCE: myaNUMBER Comment:None given Statement Of Adequacy: [employer] Comment: Satisfactory for evaluation. Endocervical/transformation zone component absent. Interpretation/Res ult: [employer] [place] [employer] Comment: Cytology Results: Negative for intraepithelial lesion or malignancy. Infection [employer] [place] [employer] Comment: Shift in vaginal marlyn suggestive of bacterial vaginosis. Comment: [employer] [place] [employer] Comment: This Pap test has been evaluated with the ThinPrep(R) Imaging System. Pain Medicine Physician: [employer] Comment: MSM, CT(ASCP) CT screening location: [place] [address] Review Pain Medicine Physician: [employer] [place] [employer] Comment: SL, CT(ASCP) CT screening location: [place] [address] (Always Message) Que [facility] [employer] Comment: EXPLANATORY NOTE: The Pap is a screening test for cervical cancer. It is not a diagnostic test and is subject to false negative and false positive results. It is most reliable when a satisfactory sample, regularly obtained, is submitted with relevant clinical findings and history, and when the Pap result is evaluated along with historic and current clinical information. HPV nRNA E6/E7 Detected (A) Not Detected myaNUMBER Comment: Methodology: Base Wad Operator Adjuster-Mediated Amplification This assay detects E6/E7 viral messenger RNA (mRNA) from 14 high-risk HPV types (16,18,31,33,35,39,45,51,52,56,58,59,66,68). Cervical sources are required for HPV testing. If a vaginal source from a patient who has had a total hysterectomy with removal of cervix was submitted, please contact the testing laboratory for alternative testing options. For additional information, please refer to http://education.ARI/faq/QJR432s9 (This link if provided for information/ educational purposes only.) ThinPrep vial Cervix uteri structure / Unknown 03/04/2025 03/05/2025 5:56 PM EST Amarilis Roberto NP LAB BLOOD ORDERABLES Final Resul t Performing Organization Address [facility] Co de Phone Number [facility] [address], [facility] [place] [address] [employer] [place] [employer] [address] [place] [address] * HPV Genotypes 16, 18/45 (03/04/2025 12:00 AM EST) HPV 16 RNA NOT DETECTED NOT DETECTED [employer] [place] [employer] HPV 18/45 RNA NOT DETECTED NOT DETECTED [employer] [place] [employer] Comment: Methodology: Base Wad Operator Adjuster Mediated Amplification Cervical sources are required for HPV testing. If a vaginal source from a patient who has had a total hysterectomy with removal of cervix was submitted, please contact the testing laboratory for alternative testing options. 03/04/2025 03/05/2025 5:5 6 PM EST Amarilis Roberto NP LAB CYTOLOGY ORDERABLES Final Re sult Performing Organization Address City/[facility] Co de Phone Number [facility] [address], [facility] [place] [address] [employer] [place] [employer] [facility] [address] [place] [address] from Last 3 Months Insurance [facility]
--- OUTSIDE RECORDS SUMMARY | 2025-04-27 11:59 | XMS_ITS | Encounter Summary ---
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 Patient has Nexplanon and has bleeding on a off and states her PCP advised her to see customer account administrator. documented in this encounter Plan of Treatment Upcoming Encounters Date Type Department Care Team (Late st Contact Info) Description 06/10/2025 9:00 AM EST Office Visit [facility] [address] [place] [address] Steffi Salgado NP [address] [place] [address] 07/11/2025 10:30 AM EDT Office Visit OB/Family Planning [address] [place] [address] Amarilis Roberto NP [address] [place] [address] documented as of this encounter Visit Diagnoses Not on filedocumented in this encounter
--- OUTSIDE RECORDS SUMMARY | 2025-04-27 11:59 | XMS_ITS | Encounter Summary ---
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 [address] [place] [address] Steffi Salgado NP [address] [place] [address] 07/11/2025 10:30 AM EDT Office Visit OB/Family Planning [address] [place] [address] Amarilis Roberto NP [address] [place] [address] documented as of this encounter Visit Diagnoses Not on filedocumented in this encounter
== END 2025-04-27 10:42 | disposition home or self-care (01) ==
LOC: HO.HHCX 10:41
PROVIDERS: Visit Provider Student in an Organized Health Care Education/Training Program
DX: M79.641 Pain in right hand (principal)
CPT/HCPCS: 73130

== ENCOUNTER → 2025-04-27 10:41 | Outpatient (BNV) | payer MEDICAID, SELFPAY | PROVIDERS: Visit Provider Radiology Diagnostic Radiology | DX: M79.641 Pain in right hand (principal) | CPT/HCPCS: 73130 ==